=== PATIENT | male | born 1975 | race Caucasian/White ===

== ENCOUNTER 2016-09-05 09:14 | Emergency (ER) | payer OTHER ==
[~2016-09-05] VITALS: Ht 180.3 cm; Wt 104.3 kg
[~2016-09-05 09:14] MED LIST: ACHD5005 PO; ALLERGY MED OTC; ASPI-983 PO; CETI10TA20 PO; CPR500T PO; DOXY100C2 PO; FAMO-119 PO; FURO40TA4 PO; LISI-556 PO; METO-272 PO; METO-352 PO; NAPR-243 PO; SPIR25TA3 PO; SUCR1TAB36 PO; TRAM50TA2 PO
--- OUTSIDE RECORDS SUMMARY | 2016-09-05 09:19 | XMS REPORT | Continuity of Care Document ---
Author Author [facility] Organization [facility] Address Unknown Phone Unavailable Care Team Providers Care Senior Java Web Developer Name Role Phone Bong Caldwell PCP [phone] Source Comments Some departments are not documenting in the electronic medical record. If you do not see the information that you expected, contact Release of Information in the Health Information Management department at [phone] for further assistance in locating additional records.[facility] Active Allergies and Adverse Reactions No Known Allergies Current Medications Prescription Sig. Disp. Refills Start End Date Status Date metoprolol XL (TOPROL XL) Take 50 mg by mouth Active 50 mg tablet daily. furosemide (LASIX) 40 mg Take 40 mg by mouth Active tablet daily. spironolactone Take 25 mg by mouth Active (ALDACTONE) 25 mg tablet daily. aspirin EC 81 mg tablet Take 81 mg by mouth Active daily. cetirizine (ZYRTEC) 10 mg Take 10 mg by mouth Active tablet daily. Active Problems Problem Noted Date ICD (implantable cardioverter-defibrillator) in place 01/21/2016 Overview: 01/21/16 [employer] subcutaneous ICD implant for primary prevention of sudden cardiac - Dr. Castro Cardiomyopathy ([facility]) 01/21/2016 NICM (nonischemic cardiomyopathy) (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) 06/28/2015 Overview: 05/14/15: Echo: cardiomegaly, EF 35-40%. triv to mild MR and TR. PA pressure WNL 05/21/15: LHC: Dilated cardiomyopathy nonischemic. Impaired LV function EF 25%. Elevated LV and diastolic pressures. 11/15/15: Echo: Mild to moderate enlargement of the LV. EF 40%. Mild MR. No evidence of significant valvular stenosis. Most Recent Encounters Date Type Specialty Providers Description 07/23/2016 Hospital Cardiology Tio Castro MD Encounter 06/24/2016 Office Visit Cardiology Tio Castro MD Post-hospital Follow Up; Device Check 06/24/2016 Hospital Cardiology Tio Castro MD Encounter Social History Tobacco Use Types Packs/Day Years Used Date Former Smoker Cigarettes 0.5 25 Quit: 07/12/2015 Smokeless Tobacco: Never Used Alcohol Use Drinks/Week oz/Week Comments No Last Filed Vital Signs Vital Sign Reading Time Taken Blood Pressure 120/82 06/24/2016 10:06 AM MANAGEMENT SME Pulse 61 06/24/2016 10:06 AM MANAGEMENT SME Temperature 36.6 C (97.8 F) 01/22/2016 8:43 AM CDT Respiratory Rate - - Height 1.803 m (5' 11") 06/24/2016 10:06 AM MANAGEMENT SME Weight 107.23 kg (236 lb 6.4 oz) 06/24/2016 10:06 AM MANAGEMENT SME Body Mass Index 32.99 06/24/2016 10:06 AM MANAGEMENT SME Oxygen Saturation 96% 01/22/2016 8:43 AM CDT Plan of Care Date Type Specialty Providers Description 10/29/2016 Appointment Cardiology Tio Castro MD [address] [facility] [address] [place] [address] [phone] (Fax) Health Maintenance Due Date Last Done Comments Physical (Comprehensive) 1982 Exam Pertussis Vaccine 1986 Tetanus Vaccine 1992 Influenza Vaccine 04/16/2016 Results from Last 3 Months DEVICE EVALUATION - REMOTE ICD (07/30/2016 3:48 PM) Component Value Range Generator Model # EMBLEM S-ICD A209 Generator Serial # [id number] Generator Implnat Date 01/21/2016 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[employer] Generator Investigational No Wireless Generator Yes Device Type S-ICD Device [place] Lat[place] Consult Transmitter Compatible RV Lead Model # EMBLEM S-ICD 3401- 45CM RV Lead Serial # [id number] RV Lead Implant Date 01/21/2016 RV Lead Location Other SUBQUTANEOUS DEFIBRILLTION LEAD RV Lead Acoustics Teacher [employer] RV Lead Investigational No RV Lead Coil Single VT Detect Rate (bpm) 200 VT Detect Rate Tx SHOCK VF Detect Rate (bpm) 240 VF Detect Rate Tx SHOCK Device Implanted By Emert EP Device Followed by MPE Name Pacemaker Dependant No EP Device Followed By MAC Date of Last Remote Check 04/23/16 Next Remote Check Due 07/2016 Remote Monitoring? Yes Date of Last Programming 06/24/16 Next Programming Check 12/2016 Due HF Patient No Narrative Current Monitoring Period: 07/23/16 through 10/20/16 See attached PDF for further data. [08/27/2016 2:25:28 PM - RADHA MELGAR] Pt initiated unscheduled remote for Sub-Q ICD received 08/21/16, reviewed today. EGM for 5 Pt initiated events show VS at 75bpm. Presenting EGM: VS (NS) at 80 bpm. Battery Voltage: 93% Electrode Impedance Status: OK No events. Next remote scheduled 10/2016. Routed to MPE in lab for review and co-sign. [07/30/2016 3:48:48 PM - BLACK ALVAREZ] Single chamber SubQ-ICD interrogation via remote received. Device function appears normal. Presenting EGM: NSR 80 bpm. Battery Voltage: 94% Electrode Impedance Status: OK Alerts noted since 06/24/16:None. Events noted since 06/24/16: None. Please see scanned data sheets for further review as needed.Next OV is pending.I will route to RAD in the EP lab to co-sign. 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[employer] Generator Investigational No Wireless Generator Yes Device Type S-ICD Device [place] Latitude Consult Transmitter Compatible RV Lead Model # EMBLEM S-ICD 3401- 45CM RV Lead Serial # [id number] RV Lead Implant Date 01/21/2016 RV Lead Location Other SUBQUTANEOUS DEFIBRILLTION LEAD RV Lead Acoustics Teacher [employer] RV Lead Investigational No RV Lead Coil Single VT Detect Rate (bpm) 200 VT Detect Rate Tx SHOCK VF Detect Rate (bpm) 240 VF Detect Rate Tx SHOCK Device Implanted By Emert EP Device Followed by MPE Name Pacemaker Dependant No EP Device Followed By MAC Date of Last Remote Check 04/23/16 Next Remote Check Due 07/2016 Remote Monitoring? Yes Date of Last Programming 06/24/16 Next Programming Check 12/2016 Due HF Patient No Device Function WNL Yes Device Reprogram Yes Programming? Yes Interrogation? Yes Device Check by Rep Yes Narrative OP clinic SICD check by [employer] rep. No episodes. WNL. See attached for more information. MRI protection and Smart Pass updated. Remote in place. Same day OV with Dr Castro. Report routed to him. ECG/QRS (06/24/2016 10:19 AM) Component Value Range QRS DURATION 94
[2016-09-05] MEDS ORDERED: fentaNYL INJECTION 100 MCG/2 ML AMP IVP ONE ×2 (09:30→11:30)
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
--- NOTE | 2016-09-05 09:44 | Diagnostic Imaging Report ---
INDICATION: Fall. Three views were obtained. FINDINGS: There is a comminuted intra-articular fracture of the distal radius. Majority of the fracture fragments are displaced dorsally. There is also an ulnar styloid fracture. Carpal bones appear to be intact. IMPRESSION: Comminuted and displaced intra-articular fracture of the distal radius as well as an ulnar styloid fracture. Dictated by: Dictated on workstation # [id number]
[2016-09-05] MEDS ORDERED: fentaNYL INJECTION 100 MCG/2 ML AMP IVP PRN (10:00)
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
[2016-09-05] MEDS ORDERED: HYDROmorphone (DILAUDID) 2 MG/ML VIAL IVP ONE (10:30)
[2016-09-05] MEDS ORDERED: NS (IVPB) 250 ML IV ONE (11:30)
[2016-09-05] MEDS ORDERED: ETOMIDATE IV SOLN 20 MG/10 ML VIAL IV ONE (11:30)
[2016-09-05] MEDS ORDERED: MIDAZOLAM 2 MG/2 ML (VERSED) VIAL IVP ONE (11:30)
--- NOTE | 2016-09-05 11:50 | Diagnostic Imaging Report ---
INDICATION: Right wrist fracture reduction Three views through a splint show improved alignment of the comminuted fracture of the distal radius. There is minimal impaction. There remains a mildly displaced ulnar styloid fracture. IMPRESSION: Satisfactory post reduction comminuted fracture of the distal right radius. Dictated by: Dictated on workstation # [id number]
[2016-09-05] MEDS ORDERED: HYDR-3731 PO (11:55)
[2016-09-05 12:12] VITALS: BP 130/83
== END 2016-09-05 12:12 | disposition home or self-care (01) ==
LOC: EDUNIT# 09:14 → ER 09:15
DX: S09.90XA Unspecified injury of head, initial encounter (principal); S52.611A Displaced fracture of right ulna styloid process, initial encounter for closed fracture; S52.351A Displaced comminuted fracture of shaft of radius, right arm, initial encounter for closed fracture; I10 Essential (primary) hypertension; Z79.82 Long term (current) use of aspirin; Z79.899 Other long term (current) drug therapy; Z95.810 Presence of automatic (implantable) cardiac defibrillator; V03.00XA Pedestrian on foot injured in collision with car, pick-up truck or van in nontraffic accident, initial encounter; Y92.59 Other trade areas as the place of occurrence of the external cause; Y99.0 Civilian activity done for income or pay
CPT/HCPCS: 25605; 29105; 70450; 72125; 73110; 93041; 96361; 96374; 96375; 96376

== ENCOUNTER → 2016-11-26 | Outpatient (CLI) | payer OTHER ==
[~2016-11-26] MED LIST changes: +HYDR-3731 PO
--- NOTE | 2016-12-02 09:57 | ECHOCARDIOGRAPHY REPORT ---
PROCEDURE PHYSICIAN: RAULITO WARE DATE OF PROCEDURE: 11/26/2016 TWO DIMENSIONAL ECHOCARDIOGRAM REPORT PRIMARY PHYSICIAN: Dr. Caldwell OTHER PHYSICIAN: Dr. Ware REFERRING PHYSICIAN: ORDERING PHYSICIAN: Sheridan Heredia APRN INDICATION FOR THE PROCEDURE: 1. Cardiomyopathy. 2. Paroxysmal supraventricular tachycardia. 3. Obstructive sleep apnea. MEASUREMENTS DERIVED VALUES LV DIAMETER (LAX) NORMALS NORMALS Diastolic 6 (3.6-5.2) Eject. Fract. (60%+/-6%) Systolic (2.3-3.9) Diastolic Vol. % Shortening (0.22-0.42) Systolic Vol. Aortic Root 2.7 IVS THICKNESS Diastolic 0.9 (0.6-1.1) LVPW THICKNESS Diastolic 0.9 (0.6-1.1) LA DIAMETER Systolic 3.9 (2.1-3.7) DESCRIPTION: Two-dimensional echocardiography shows mild enlargement of the left ventricle. Aortic, mitral and tricuspid valve leaflets show good leaflet excursion. There is no significant pericardial effusion. There appears to be mild global hypokinesis. Left ventricular ejection fraction is approximately 40 to 45%. Aortic, mitral and tricuspid valve leaflets show good leaflet excursion. There is no Doppler evidence of significant valvular stenosis. Doppler imaging shows mild mitral and tricuspid regurgitation. Pulmonary artery systolic pressure is estimated to be approximately 35 mmHg. There appears to be mild to moderate dilation of the inferior vena cava. CONCLUSIONS: 1. Technically somewhat difficult study. 2. Mild global hypokinesis with left ventricular ejection fraction of 40 to 45%. 3. Mild enlargement of the left ventricle. 4. Mild mitral and tricuspid regurgitation. 5. No evidence of significant valvular stenosis. 6. Pulmonary artery systolic pressure is estimated to be 35 mmHg. Job ID: [id number] Dictated Date: 12/01/2016 14:56:02 Group Exercise Manager Date: 12/02/2016 09:51:55 / cindy
== END ==
LOC: CARD 10:31
PROVIDERS: ATTEND Nurse Practitioner Family
DX: I42.0 Dilated cardiomyopathy (principal); I47.1 Supraventricular tachycardia; G47.33 Obstructive sleep apnea (adult) (pediatric); Z95.810 Presence of automatic (implantable) cardiac defibrillator
CPT/HCPCS: 93306

== ENCOUNTER 2016-12-08 15:45 | Outpatient (RCR) | payer OTHER | END 2016-12-23 12:47 | disposition home or self-care (01) | PROVIDERS: ATTEND Emergency Medicine | DX: S52.91XD Unspecified fracture of right forearm, subsequent encounter for closed fracture with routine healing (principal); V03.00XD Pedestrian on foot injured in collision with car, pick-up truck or van in nontraffic accident, subsequent encounter ==

== ENCOUNTER → 2016-12-31 | Outpatient (CLI) | payer OTHER ==
--- NOTE | 2016-12-31 16:08 | Diagnostic Imaging Report ---
EXAMINATION: DEXA scan. INDICATION: Osteopenia. Technique: Bone mineral density estimated based on dual energy radiography over the lumbar spine and femoral necks, was performed. Findings: The lumbar spine T-score is 1.2. T-score over the left femoral neck is 0.7 and on the right side is 1.1. IMPRESSION: Normal bone mineral density. Dictated by: Dictated on workstation # [id number]
== END ==
LOC: RAD 11:10
PROVIDERS: ATTEND Physician Assistant
DX: M81.0 Age-related osteoporosis without current pathological fracture (principal)
CPT/HCPCS: 77080

== ENCOUNTER 2017-05-26 05:41 | Outpatient (CLI) | payer OTHER ==
[~2017-05-26] VITALS: Ht 180.3 cm; Wt 110.7 kg
[2017-05-26] MEDS ORDERED: FURO40TA4 PO (15:12)
[2017-05-26] MEDS ORDERED: CARV12.53 PO (15:12)
[2017-05-26] MEDS ORDERED: FISH1CAP15 PO (15:12)
== END 2017-05-26 15:24 ==
LOC: PREOP 05:41
PROVIDERS: ATTEND Surgery
DX: Z01.818 Encounter for other preprocedural examination (principal); K42.9 Umbilical hernia without obstruction or gangrene

== ENCOUNTER 2017-05-31 07:03 | Day surgery (SDC) | payer OTHER ==
[~2017-05-31] VITALS: Ht 180.3 cm; Wt 110.7 kg
[~2017-05-31 07:03] MED LIST changes: +CARV12.53 PO; +FISH1CAP15 PO
[2017-05-31] MEDS ORDERED: LIDOCAINE 1% INJ 20 ML (XYLOCAINE) VIAL ONE (07:25)
[2017-05-31] MEDS ORDERED: BUPIVACAINE 0.5% 30 ML (SENSORCAINE) VIAL ONE (07:25)
[2017-05-31] MEDS ORDERED: ceFAZolin 2 GM/NS 50 ML IV ONE (07:30)
[2017-05-31] MEDS ORDERED: LACTATED RINGERS 1,000 ML IV PRN (07:41)
--- NOTE | 2017-05-31 08:30 | Progress Note-Pre Operative ---
Pre-Operative Progress Note H&P Reviewed The H&P was reviewed, patient examined and no changes noted. Date Seen by Provider: May 31, 2017 Time Seen by Provider: 08:10 Date H&P Reviewed: May 31, 2017 Time H&P Reviewed: 08:10 Pre-Operative Diagnosis: umbilical hernia CHINO FAN DO May 31, 2017 08:30
[2017-05-31 08:37] VITALS: BP 136/84
[2017-05-31] MEDS ORDERED: fentaNYL INJECTION 250 MCG/5 ML AMP ONE (09:03)
[2017-05-31] MEDS ORDERED: MIDAZOLAM 2 MG/2 ML (VERSED) VIAL ONE (09:04)
[2017-05-31] MEDS ORDERED: ROCURONIUM 50 MG/5 ML (ZEMURON) VIAL IV ONE (09:47)
[2017-05-31] MEDS ORDERED: ONDANSETRON 4 MG/2 ML (SDV) Z0FRAN ONE (09:47)
[2017-05-31] MEDS ORDERED: proPOfol 200 MG/20 ML (DIPRIVAN) VIAL IV ONE (09:47)
[2017-05-31] MEDS ORDERED: SEVOFLURANE (ULTANE) 15 ML INHAL SOLN ONE ×4 (09:47→10:17)
[2017-05-31] MEDS ORDERED: LIDOCAINE PF 2% 5 ML (XYLOCAINE) VIAL ONE (09:47)
[2017-05-31] MEDS ORDERED: NEOSTIGMINE (BLOXIVERZ ) 1 MG/1ML 10 ML VIAL ONE (09:48)
[2017-05-31] MEDS ORDERED: GLYCOPYRROLATE 0.2 MG/ML (ROBINUL) 2 ML VIAL ONE (09:48)
--- NOTE | 2017-05-31 10:12 | Progress Note-Post Operative ---
Post-Operative Progess Note Surgeon (s)/Sales Person (s) Surgeon CHINO FAN DO Sales Person: Dr. Tobin Pre-Operative Diagnosis Umbilical Hernia Post-Operative Diagnosis same Procedure & Operative Findings Date of Procedure 05/31/17 Procedure Performed/Findings lap umbilical hernia Anesthesia Type gen Estimated Blood Loss Estimated blood loss (mL): min Specimens/Packing Specimens Removed na CHINO FAN DO May 31, 2017 10:12
[2017-05-31] MEDS ORDERED: DOCU-143 PO (10:13)
[2017-05-31] MEDS ORDERED: HYDR-3812 PO (10:13)
[2017-05-31] MEDS ORDERED: HYDROcodone/APAP 5 MG/325 MG (LORTAB) TAB PO PRN (10:15)
--- NOTE | 2017-05-31 10:15 | Discharge Inst-Simple/Standard ---
Discharge Inst-Standard Discharge Medications New, Converted or Re-Newed RX: RX on Chart Patient Instructions/Follow Up Plan of Care/Instructions/FU: 2-3 weeks Ronda Activity as Tolerated: No Discharge Diet: Regular Diet Other Inst to Patient Follow up Appt: Make appointment for 2-3 weeks. Instructions: No lifting greater than 10 pounds. No strenuous activity. May shower in 24 hours, no tub bath or soaking. Use incentive spirometer at home as directed. No Smoking Skin/Wound Care: May remove bandages in 48 hours. You need to leave the white strips over incision on they will fall off on their own. Symptoms to Report: Appetite Changes, Extremity Discoloration, Numbness/Tingling, Swelling Increased , Bleeding Excessive, Eyesight Changes, Pain Increased, Urine Color Change, Constipation(Persistent), Fever over 101 degree F, Pain/Pressure in chest, Urinating Difficulty, Cough Up/Vomit Blood, Heart Beat Irreg/Pounding, Pain/ Pressure in jaw, Vaginal Bleeding Increase, Cramps in feet or legs, Lightheadedness, Pain/Pressure in shoulder, Diarrhea(Persistent), Memory Changes Suddenly, Questions/Concerns, Weight gain consecutive days, Dizziness/ Fainting, Nausea/Vomiting, Shortness of Breath, Weight gain over 2 pounds If questions or concerns contact your physician Or seek help at emergency department. CHINO FAN DO May 31, 2017 10:15
[2017-05-31] MEDS ORDERED: ONDANSETRON 4 MG/2 ML (SDV) Z0FRAN IVP PRN (10:30)
[2017-05-31] MEDS: morphine INJ 10 MG/ML 1ML (SYR OR VIAL) IVP PRN ×2 (10:33→10:49)
[2017-05-31 11:15] VITALS: BP 136/86
[2017-05-31 11:45] VITALS: BP 140/81
[2017-05-31 12:15] VITALS: BP 137/94
--- NOTE | 2017-06-01 03:29 | OPERATIVE REPORT ---
DATE OF SERVICE: 05/31/2017 PREOPERATIVE DIAGNOSIS: Umbilical hernia. POSTOPERATIVE DIAGNOSIS: Umbilical hernia. PROCEDURE: Laparoscopic umbilical hernia repair using echo 4.5 inch Ventralight mesh. SURGEON: Chino Bond DO RAPID TRANSIT OPERATOR: Dr. Tobin, assisted in retraction, dissection and closure. ANESTHESIA: General. ESTIMATED BLOOD LOSS: Minimal. COMPLICATIONS: None. INDICATIONS: The patient is a 41-year-old male with an umbilical hernia that has increased in size and he wishes to have repaired. He understands risks and benefits of procedure and wished to proceed with procedure. Consent was signed and on the chart. DESCRIPTION OF PROCEDURE: The patient was taken to the operating suite, was prepped and draped in sterile fashion. Surgical pause was performed. Local anesthetic was used to infiltrate prior to incisions. In the left upper quadrant a 5 mm incision was made. Veress needle was inserted in the abdomen and pneumoperitoneum was achieved. Under direct visualization of the laparoscope, a 5 mm trocar was then placed into the abdomen. Under direct visualization of the laparoscope a 12 mm trocar was placed in the left lower quadrant and a 5 mm trocar was placed in the right lower quadrant. The omentum was up through the hernia defect. This was able to be reduced. Harmonic was used to dissect the fat pad away from the umbilicus. The defect was visualized. The echo Ventralight 4.5 inch mesh was inserted in the abdomen. The hernia defect was closed using 0 Vicryl. The Ventralight mesh was then grasped and brought out through the umbilical incision. The balloon was insufflated. A SecureStrap Tacker was placed circumferentially on the outer ring. The balloon was then removed and inner crown was created as well. The 12 mm fascial defect trocar was then closed using 0 Vicryl with a Endo close. The abdomen was then desufflated, the trocars were removed. The skin was then closed using 4-0 Vicryl in a subcuticular fashion. The abdomen was then washed and dried and Mastisol and Steri-Strips were placed over the incisions. Patient tolerated the procedure well without any complications and taken to the recovery room in stable condition. Job ID: [id number] DocumentID: [id number] Dictated Date: 05/31/2017 15:13:39 Welder Apprentice Date: 06/01/2017 03:28:51 Dictated By: CHINO BOND DO
== END 2017-05-31 12:37 | disposition home or self-care (01) ==
LOC: SDC 07:03
PROVIDERS: ATTEND Surgery
DX: K42.9 Umbilical hernia without obstruction or gangrene (principal); F17.210 Nicotine dependence, cigarettes, uncomplicated; I10 Essential (primary) hypertension; G47.33 Obstructive sleep apnea (adult) (pediatric); E66.01 Morbid (severe) obesity due to excess calories; Z79.82 Long term (current) use of aspirin; Z79.899 Other long term (current) drug therapy; Z68.34 Body mass index [BMI] 34.0-34.9, adult
CPT/HCPCS: 87081; 94664

== ENCOUNTER → 2020-01-03 | Outpatient (CLI) | payer OTHER ==
[~2020-01-03] MED LIST changes: -CETI10TA20 PO; +CETI10TA21 PO; +CHOL5000 PO; +DOCU-143 PO; -METO-272 PO; +METO50TA7 PO; +OMEG-160 PO; +PANT40TA3 PO; -SPIR25TA3 PO; +SPIR25TA5 PO; -TRAM50TA2 PO; +TRM50T PO
== END ==
LOC: CARD 13:00
PROVIDERS: ATTEND Internal Medicine Cardiovascular Disease
DX: I42.0 Dilated cardiomyopathy (principal); G47.33 Obstructive sleep apnea (adult) (pediatric); I47.1 Supraventricular tachycardia; Z95.810 Presence of automatic (implantable) cardiac defibrillator
CPT/HCPCS: 93306

== ENCOUNTER 2022-02-02 07:39 | Day surgery (SDC) | payer BC, OTHER ==
[~2022-02-02] VITALS: Ht 180.3 cm; Wt 104.2 kg
[2022-02-02] VITALS (11 sets, daily range): BP systolic 127–143; BP diastolic 80–92
[~2022-02-02 07:39] MED LIST changes: +ASPI-1238 PO; -ASPI-983 PO; -CETI10TA21 PO; +CETI10TA49 PO; -LISI-556 PO; +LISI5TAB20 PO; -PANT40TA3 PO; +PANT40TA52 PO
[2022-02-02] MEDS ORDERED: NS IV 1000 ML 1,000 ML ONE ×3 (07:44→11:19)
[2022-02-02] MEDS ORDERED: HEParin (CATH LAB) 0 ML IV ONE (07:44)
[2022-02-02] MEDS ORDERED: LIDOCAINE 1% INJ 20 ML VIAL ONE (07:44)
[2022-02-02] MEDS ORDERED: NS IV 1000 ML 1,000 ML IV SCH ×2 (07:45→10:30)
[2022-02-02] MEDS ORDERED: ceFAZolin INJECTION 1,000 MG ONE ×2 (08:59→10:29)
[2022-02-02] MEDS ORDERED: MIDAZOLAM 2 MG/2 ML (VERSED) VIAL ONE (09:08)
[2022-02-02] MEDS ORDERED: fentaNYL INJ 100 MCG/2 ML AMP ONE (09:08)
[2022-02-02] MEDS ORDERED: ceFAZolin INJECTION 1,000 MG VIAL IV ONE (09:15)
--- NOTE | 2022-02-02 09:26 | Pre-Op Note & Conscious Sedat ---
Pre-Operative Progress Note H&P Reviewed The H&P was reviewed, patient examined and no changes noted except for on exam he has an erythematous patchy rash on his low to mid back due to his heating pad. Date H&P Reviewed: Feb 02, 2022 Time H&P Reviewed: 09:25 Pre-Op Diagnosis: ICD generator at EOS Conscious Sedation Pre-Proced ASA Score For ASA 3 and 4: Consider anesthesia and medical clearance. Also, for patients with a history of failed moderate sedation consider anesthesia. Airway Lungs Heart ASA score ASA 1: a normal healthy patient ASA 2: a patient with a mild systemic disease (mid diabetes, controlled hypertension, obesity ASA 3: a patient with a severe systemic disease that limits activity (angina, COPD, prior Myocardial infarction) ASA 4: a patient with an incapacitating disease that is a constant threat to life (CHF, renal failure) ASA 5: a moribund patient not expected to survive 24 hrs. (ruptured aneurysm) ASA 6: a declared brain- patient whose organs are being harvested. For emergent operations, add the letter E after the classification Sedation Plan The patient is an appropriate candidate to undergo the planned procedure, se dation, and anesthesia. The patient immediately re-assessed prior to indication. BHUPINDER GORDILLO MD Feb 02, 2022 09:26
--- NOTE | 2022-02-02 09:33 | Pre-Procedure Progress Note ---
Pre-Procedure Progress Note H&P Reviewed The H&P was reviewed, patient examined and no changes noted except for on exam he has an erythematous patchy rash on his low to mid back due to his heating pad. Date H&P Reviewed: Feb 02, 2022 Time H&P Reviewed: 09:33 Pre-Procedure Diagnosis: ICD generator at EOS BHUPINDER GORDILLO MD Feb 02, 2022 09:33
[2022-02-02 09:34] LABS: BASOPHILS # (AUTO) 0.1 10^3/uL (0.0-0.1); BASOPHILS % (AUTO) 1 % (0-10); EOSINOPHILS # (AUTO) 0.3 10^3/uL (0.0-0.3); EOSINOPHILS % (AUTO) 3 % (0-10); HEMATOCRIT 45 % (40-54); HEMOGLOBIN 14.9 g/dL (13.3-17.7); LYMPHOCYTES # (AUTO) 1.5 10^3/uL (1.0-4.0); LYMPHOCYTES % (AUTO) 19 % (12-44); MEAN CORPUSCULAR HEMOGLOBIN 31 pg (25-34); MEAN CORPUSCULAR HGB CONC 33 g/dL (32-36); MEAN CORPUSCULAR VOLUME 91 fL (80-99); MEAN PLATELET VOLUME 10.4 fL (9.0-12.2); MONOCYTES # (AUTO) 0.6 10^3/uL (0.0-1.0); MONOCYTES % (AUTO) 8 % (0-12); NEUTROPHILS # (AUTO) 5.3 10^3/uL (1.8-7.8); NEUTROPHILS % (AUTO) 69 % (42-75); PLATELET COUNT 205 10^3/uL (130-400); WHITE BLOOD COUNT 7.7 10^3/uL (4.3-11.0)
--- NOTE | 2022-02-02 09:40 | Permanent Pacemaker Implant ---
ICD-PPM Subcu ICD Generator Change Attending Nuclear Radiation Engineer: Tio Gordillo MD Fellow: None Preoperative diagnosis: Subcu ICD at EOS due to early battery depletion advisory Postoperative diagnosis: Same Procedure(s) Performed: Subcu ICD generator explantation Subcu ICD generator implantation Assessment of subcu ICD lead Procedure Description: Successful Patient was sedated with general anesthesia. Once the patient was adequately sedated he was prepped and draped in usual fashion. Lidocaine was then administered over the prior incision. Incision was made along the prior incision and extended higher towards the axilla once the header was noted to be rotated and directed towards the axilla. The initial incision was extended to the device capsule with PlasmaBlade dissection. Capsule was incised. Hemostasis was obtained. As noted the device has been secured and the header was secured rotated towards the axilla and therefore was difficult to access from the incision. The incision was extended slightly. We able to free up the suture from the subcu tissue securing the device. It was 2-0 Ethibond suture. At that point with significant manipulation we were able to remove the prior subcu ICD generator from the pocket. Device of course have been turned off prior to the procedure. Patient has a stable underlying rhythm. The lead was disconnected from the prior ICD generator. The pocket was then flushed with saline and antibiotic solution. Hemostasis was achieved. I then exchanged gloves removing the outer gloves and putting on a fresh pair of new gloves. The new generator was then connected to the subcu ICD lead. All setscrews were tightened and assessed to be secure. Generator and lead were placed in the pocket only this time with blunt PlasmaBlade dissection I freed up a portion of the lead so that I could secure the laboratory animal facility supervisor in the pocket. Using 0-0 Ethibond suture I secured the Hattar to the lateral fascia. Then closed the pocket in 3 running layers observable suture. 2-0 Vicryl was used for the lower layers followed by 4-0 Monocryl suture. Dermabond was then applied over the incision. Final dressing was applied over that. Patient tolerated the procedure well. DFT testing was deferred given the patient's clinical status, improvement in EF, and no events since original implant. Subcu ICD system: 02/02/22: New subcu ICD generator: [employer]: Model #A219: [facility] subcu ICD: Serial #[id number] 01/21/2016: [employer] subcu ICD lead: Model #3401; serial number [id number] Explanted Subcu ICD: 01/21/2016 original implant date; [employer]; model number A209; serial #[id number] Device parameters: Conditional shock zone at 200 bpm, shock zone at 240 bpm, max output of the device for all therapies. Procedure Findings: Adequate testing of device lead Anesthesia: Moderate sedation via RN Sedation: Per anesthesia Estimated blood loss: 10 mL Complications: None Specimens removed: None Recommendations: - Pain control as needed DC home once clinically stable. Incision check in a week. Further instructions per discharge.. TIO GORDILLO MD Feb 02, 2022 09:40
[2022-02-02 09:49] LABS: CALCIUM 9.1 MG/DL (8.5-10.1); CREATININE SERUM 0.75 MG/DL (0.60-1.30); POTASSIUM 3.7 MMOL/L (3.6-5.0)
[2022-02-02] MEDS ORDERED: SUCCINYLCHOLINE INJ 20 MG/1 ML 10 ML VIAL ONE (10:07)
--- NOTE | 2022-02-02 10:38 | Discharge Inst-Cardiology ---
Cardiology Discharge Inst. You should have a wound or incision check in one week to ensure healing well. Your incision was closed with surgical glue - Dermabond. Your outer dressing will be removed the day after your procedure and Dermabond will remain. You can typically resume driving 5 days after surgery. There may be special considerations if you passed out before your device was implanted. No pushing, pulling, or lifting greater than 10 - 15 pounds for one month with the affected arm. You should avoid bowling, swimming, golfing or swinging a baseball bat with the affected arm for 90 days. Avoid any activity/exercise which involves rough contact with device site or might cause a heavy blow to the skin over the device. Do not mow lawn for 4 weeks. You may return to work in 1 day unless instructed otherwise. This will vary with your occupation, age, and overall physical condition. You may shower once you are home; however avoid direct contact with the incision (allow the water to hit the back of your shoulder rather than directly on the incision). Pat dry afterwards. Do not submerge incision in tub, pool, hot tub, or wagner for 4 weeks. Unless your incision is bleeding or draining, keep it open to air. Avoid applying deodorants, powders, creams, lotions, etc. to your incision for 4 weeks. There are no stitches to be removed. Your incision is closed with skin glue and there are internal sutures which will dissolve on their own. Please do not pick or pull at the skin glue. Please allow it to wear off on its own. You should have a wound check or a check of your incision by your Primary Cardiology Team in one week Your incision should gradually look better each day. If you notice unusual sw elling, redness, drainage, have increasing pain at the site, or have a fever greater than 100 degrees, notify your physician immediately. Usually there are no stitches to be removed. Your incision should gradually look better each day. Please notify our office immediately if you notice any of the following: -an increase in swelling or redness -any drainage -increasing pain at the incision site -fever over 100 degrees BHUPINDER GORDILLO MD Feb 02, 2022 10:38
[2022-02-02] MEDS ORDERED: METF-397 PO (10:42)
[2022-02-02] MEDS ORDERED: INSU100I29 SQ (10:43)
--- NOTE | 2022-02-02 10:53 | Discharge Inst-Cardiology ---
Cardiology Discharge Inst. You should have a wound or incision check in one week to ensure healing well. Your incision was closed with surgical glue - Dermabond. Your outer dressing will be removed the day after your procedure and Dermabond will remain. Do not raise your elbow higher than shoulder level on the affected side for the first 4 weeks. It is important to continue to move your shoulder joint gently each day to prevent stiffening or "freezing" of the joint. You can typically resume driving 5 days after surgery. There may be special considerations if you passed out before your device was implanted. If you are an active sleeper, you should use your sling at night until the restrictions on your affected arm are lifted. No pushing, pulling, or lifting greater than 10 - 15 pounds for one month with the affected arm. You should avoid bowling, swimming, golfing or swinging a baseball bat with the affected arm for 90 days. Avoid any activity/exercise which involves rough contact with device site or might cause a heavy blow to the skin over the device. You may participate in sexual activity in 1 week; however avoid placing all your weight on arms for 4 weeks. Do not mow lawn for 4 weeks. You may return to work in 3-5 days unless instructed otherwise. This will vary with your occupation, age, and overall physical condition. You may shower once you are home; however avoid direct contact with the incision (allow the water to hit the back of your shoulder rather than directly on the incision). Pat dry afterwards. Do not submerge incision in tub, pool, hot tub, or wagner for 4 weeks. Unless your incision is bleeding or draining, keep it open to air. Avoid applying deodorants, powders, creams, lotions, etc. to your incision for 4 weeks. There are no stitches to be removed. Your incision is closed with skin glue and there are internal sutures which will dissolve on their own. Please do not pick or pull at the skin glue. Please allow it to wear off on its own. You should have a wound check or a check of your incision by your Primary Cardiology Team in one week Your incision should gradually look better each day. If you notice unusual swelling, redness, drainage, have increasing pain at the site, or have a fever greater than 100 degrees, notify your physician immediately. Usually there are no stitches to be removed. Your incision should gradually look better each day. Please notify our office immediately if you notice any of the following: -an increase in swelling or redness -any drainage -increasing pain at the incision site -fever over 100 degrees BHUPINDER GORDILLO MD Feb 02, 2022 10:53
[2022-02-02] MEDS ORDERED: HYDR4TAB49 PO (11:04)
[2022-02-02] MEDS ORDERED: SEVOFLURANE (ULTANE) 15 ML INHAL SOLN ONE (12:21)
[2022-02-02] MEDS ORDERED: morphine INJ 10 MG/ML 1ML (SYR OR VIAL) IVP ONE (12:45)
[2022-02-02] MEDS ORDERED: ONDANSETRON 4 MG/2 ML (SDV) Z0FRAN IVP PRN (12:45)
--- NOTE | 2022-02-02 13:07 | Anesthesia-General Post-Op ---
General Patient Condition Mental Status/LOC: Same as Preop Cardiovascular: Satisfactory Nausea/Vomiting: Absent Respiratory: Satisfactory Pain: Controlled Complications: Absent Post Op Complications Complications None Follow Up Care/Instructions Patient Instructions None needed. Anesthesia/Patient Condition Patient Condition Patient is doing well in PACU, no complaints, stable vital signs, no apparent adverse anesthesia problems. ALLISON YANES DO Feb 02, 2022 13:07
== END 2022-02-02 14:40 | disposition home or self-care (01) ==
LOC: CATH 07:39
PROVIDERS: ATTEND Internal Medicine Cardiovascular Disease
DX: I48.91 Unspecified atrial fibrillation (principal); E66.9 Obesity, unspecified; Z68.32 Body mass index [BMI] 32.0-32.9, adult
CPT/HCPCS: 33262; 36415; 80048; 85025

== ENCOUNTER → 2022-03-30 | Outpatient (CLI) | payer BC ==
[~2022-03-30] MED LIST changes: +HYDR4TAB49 PO; +INSU100I29 SQ; +METF-397 PO
== END ==
LOC: CARD 08:30
PROVIDERS: ATTEND Nurse Practitioner Family
DX: I42.0 Dilated cardiomyopathy (principal)
CPT/HCPCS: 93306

== ENCOUNTER → 2023-03-15 | Outpatient (RCR) | payer BC ==
[~2023-03-15] MED LIST changes: -INSU100I29 SQ; +INSU100I30 SQ
== END | disposition home or self-care (01) ==
PROVIDERS: ATTEND Family Medicine
DX: M48.061 Spinal stenosis, lumbar region without neurogenic claudication (principal)

== ENCOUNTER 2023-04-09 15:13 | Outpatient (RCR) | payer BC | END 2023-04-15 | disposition home or self-care (01) | PROVIDERS: ATTEND Family Medicine | DX: M54.9 Dorsalgia, unspecified (principal) ==